=== PATIENT | female | born 1995 | race Caucasian/White ===

== ENCOUNTER 2017-05-23 21:48 | Emergency (ER) | payer BC ==
[~2017-05-23] VITALS: Ht 162.6 cm; Wt 73.9 kg
[2017-05-23 22:59] LABS: HEMATOCRIT 38.3 % (36.0-46.0); MCH 29.7 PG (29.0-34.0); MCHC 32.9 G/DL (30.0-36.0); MCV 90.3 FL (83-99); MEAN PLAT.VOLUME 10.5 uM^3 (9.5-12.4); PLATELET COUNT 270 K/uL (156-360); RBC DIS.WIDTH-CV 12.4 % (11.8-14.6); RBC DIS.WIDTH-SD 40.5 % (39-53); RED BLOOD COUNT 4.24 M/uL (3.80-5.20); WHITE BLOOD COUNT 9.8 K/uL (4.1-10.2)
[2017-05-23 23:13] LABS: CHLORIDE 104 mEq/L (99-109); POTASSIUM 3.7 mEq/L (3.7-5.4); SODIUM 141 mEq/L (136-147)
[2017-05-23 23:15] LABS: GLUCOSE 96 mg/dL (70-99)
[2017-05-23 23:17] LABS: ANION GAP 9 MEQ/L (2-14); TOTAL BILIRUBIN 0.4 mg/dL (0.0-1.0)
[2017-05-23 23:19] LABS: ALKALINE PHOSPHATASE 82 IU/L (3-129)
[2017-05-23 23:20] LABS: UREA NITROGEN (BUN) 14 mg/dL (9-23)
[2017-05-23 23:26] LABS: GFR ESTIMATE (CALCULATED) > 59 mL/min/
[2017-05-23 23:31] LABS: QUANTITATIVE HCG < 4.0 MIU/ML
[2017-05-24 00:22] LABS: ADD MIUA? YES; BILIRUBIN NEGATIVE; BLOOD NEGATIVE; COLOR STRAW ((YELLOW)); GLUCOSE (STRIP) NEGATIVE; KETONES NEGATIVE; LEUKOCYTES NEGATIVE; NITRITE NEGATIVE; PROTEIN (STRIP) NEGATIVE; SPECIFIC GRAVITY 1.009 (1.000-1.030); UROBILINOGEN 0.2 MG/DL (0.2-1.0)
[2017-05-24 00:32] LABS: BACTERIA 2+ /HPF; EPITHELIAL CELLS RARE /HPF; MUCUS NONE SEEN /LPF; RED BLOOD CELLS 0-5 /HPF (0-5); UCUL ADDED? NO; WHITE BLOOD CELLS 0-5 /HPF (0-5)
[2017-05-24] MEDS ORDERED: NAPROSYN500 MG PO (01:15)
[2017-05-24] MEDS ORDERED: KEFLEX500 MG PO (01:15)
[2017-05-24 01:33] VITALS: BP 125/78
== END 2017-05-24 01:33 | disposition home or self-care (01) ==
LOC: EME 21:48
DX: N83.292 Other ovarian cyst, left side (principal); N39.0 Urinary tract infection, site not specified
CPT/HCPCS: 74176; 80053; 81003; 84702; 85027; 99281; 99284